=== PATIENT | female | born 1965 | race Hispanic/Latino ===

== ENCOUNTER 2017-07-23 06:28 | Day surgery (SDC) | payer OTHER ==
[2017-07-19 14:50] LABS: Absolute Monocytes 0.5 K/uL (0.1-1.3); Absolute Neutrophil 4.6 K/uL (1.8-8.0); Basophils % 0.5 % (0-1.3); Eosinophils % 4.1 % (0-4.4); Hematocrit 41.5 % (36.0-45.0); Lymphocytes % 26.8 % (15.3-44.8); MCV 89.1 fL (80-100); Monocytes % 6.5 % (3.3-12.3); RBC Red Blood Cell Count 4.66 M/uL (3.86-4.86)
[2017-07-19 15:25] LABS: Potassium 4.3 mEq/L (3.6-5.0)
--- NOTE | 2017-07-19 15:38 | RAD REPORT ---
EXAM DESCRIPTION: RAD - Chest Pa And Lat (2 Views) - 07/19/2017 2:50 pm CLINICAL HISTORY: Preop chest, pending umbilical hernia repair COMPARISON: None. TECHNIQUE: PA and lateral views of the chest were obtained. FINDINGS: The lungs are clear. Heart size is normal and central vasculature is within normal limit s. No pleural effusion or pneumothorax seen. No acute bony finding noted. No aortic abnormality. IMPRESSION: No acute cardiopulmonary process.
--- NOTE | 2017-07-20 06:52 | EKG ---
Test Date: 2017-07-19 Test Time: 14:36:17 Shell Maker Lockstitch: PADMAJA MEASUREMENT RESULTS: Intervals: Rate: 87 MO: 136 QRSD: 78 QT: 368 QTc: 442 [place]: P: 53 MO: 136 QRS: 13 T: 47 INTERPRETIVE STATEMENTS: Normal sinus rhythm Normal ECG No previous ECG available for comparison Electronically Signed On 07-20-17 06:51:42 CDT by Phil Adams
[~2017-07-23 06:28] MED LIST: CEFAZOLIN/SWI 1gm 1 GM/10 ML SYR IVP SCH
--- OUTSIDE RECORDS SUMMARY | 2017-07-23 06:34 | XMS REPORT | Clinical Summary ---
:1965 Author Organization [facility] Address [address] [place] [address] Care Team Providers Name Role Phone Surekha Hampton MD Primary Care Provider Allergies No Known Allergies Current Medications Prescription Sig. Disp. Refills Start Date End Date Status naproxen (NAPROSYN) Take 1 tablet 30 tablet 0 07/18/2016 08/02/2016 500 MG tablet (500 mg total) by mouth 2 (two) times a day with meals for 15 days. cyclobenzaprine Take 1 tablet 20 tablet 0 07/22/2016 08/21/2016 (FLEXERIL) 10 mg (10 mg total) tablet by mouth 2 (two) times a day as needed for muscle spasms for up to 30 days. ibuprofen Take 1 tablet 21 tablet 0 07/22/2016 08/21/2016 (ADVIL,MOTRIN) 800 MG (800 mg total) tablet by mouth 3 (three) times a day for 30 days. acetaminophen-codeine Take 1-2 30 tablet 0 07/22/2016 07/25/2016 (TYLENOL WITH CODEINE tablets by #3) 300-30 mg per mouth every 6 tablet (six) hours as needed for moderate pain for up to 3 days. Active Problems Not on file Encounters Date Type Specialty Care Team Description 07/22/2016 Emergency Emergency Medicine Mary Mullen Neck pain ( Primary Dx) IIIMD after 07/22/2016 Social History Tobacco Use Types Packs/Day Years Used Date Never Smoker Alcohol Use Drinks/Week oz/Week Comments Yes occasionally Sex Assigned at Date Recorded Not on file Last Filed Vital Signs Vital Sign Reading Time Taken Blood Pressure 135/77 07/22/2016 6:05 PM CDT Pulse 72 07/22/2016 6:05 PM CDT Temperature 36.4 C (97.5 F) 07/22/2016 4:44 PM CDT Respiratory Rate 16 07/22/2016 6:05 PM CDT Oxygen Saturation 98% 07/22/2016 6:05 PM CDT Inhaled Oxygen Concentration - - Weight - - Height 154.9 cm (5' 1") 07/22/2016 1:18 PM CDT Body Mass Index - - Plan of Treatment Health Maintenance Due Date Last Done Comments CERVICAL CANCER SCREENING 1986 BREAST CANCER SCREENING 2015 COLON CANCER SCREENING 2015 SHINGRIX VACCINE (#1) 2015 INFLUENZA VACCINE 09/19/2017 Results ECG ED Preliminary Interpretation - NOT AN ORDER (07/22/2016 11:35 PM) Narrative Mary Mullen MD 07/22/2016 11:35 PM ECG ED Preliminary Interpretation - Not an Order Performed by: FRANCE MONTERROSO Authorized by: MARY MULLEN ECG reviewed by ED Physician in the absence of a frame sample and pattern supervisor: yes Rate: ECG rate:71 ECG rate assessment: normal Rhythm: Rhythm: sinus rhythm QRS: QRS axis:Normal CT Cervical Spine Wo Contrast (07/22/2016 5:23 PM) [place] [id number] Narrative EXAMINATION:CT CERVICAL SPINE WO CONTRAST CLINICAL HISTORY:neck pain COMPARISON:None. TECHNIQUE: Noncontrast cervical spinal CT with multiplanar reconstruction performed using radiation dose reduction techniques.Technical factors are evaluated and adjusted to ensure appropriate moderation of exposure.Automated dose management technology is applied to adjust radiation exposure while achieving a diagnostic quality image. FINDINGS: There is straightening of normal cervical lordosis without malalignment. Vertebral body heights are preserved. There is no evidence of acute fracture, suspicious osteolytic or osteoblastic lesion. The C2-3, C5-6, and C6-7 discs are moderately narrowed with adjacent mild endplate osteophytes at C5-6 and C6-7. C2-3: There are mild bilateral neural foraminal stenoses from adjacent facet arthropathy No significant spinal canal stenosis is suspected. C3-4: There is mild right neural foraminal stenosis from adjacent facet arthropathy. No significant spinal canal stenosis is suspected. C4-5: There is mild left neural foraminal stenosis from adjacent facet arthropathy. No significant spinal canal stenosis is suspected. C5-6: There are moderate left more than right neural foraminal stenoses from adjacent uncovertebral and facet arthropathy, encroaching on the exiting C6 nerve roots. Endplate osteophyte results in probable at most mild spinal canal stenosis. C6-7: There are severe left and mild right neural foraminal stenoses from adjacent uncovertebral and facet arthropathy, impinging on the exiting left C7 nerve root. Endplate osteophyte results in probable at most mild spinal canal stenosis. C7-T1: There is no significant neural foraminal stenosis. No significant spinal canal stenosis is suspected. Visualized neck soft tissues including thyroid gland are unremarkable. IMPRESSION: Cervical spondylosis as described, including severe left C6-7 and moderate left more than right C5-6 neural foraminal stenoses. [facility]-[id number] Procedure Note [facility], Radiology Results - 07/22/2016 5:47 PM CDT EXAMINATION: CT CERVICAL SPINE WO CONTRAST CLINICAL HISTORY: neck pain COMPARISON: None. TECHNIQUE: Noncontrast cervical spinal CT with multiplanar reconstruction performed using radiation dose reduction techniques. Technical factors are evaluated and adjusted to ensure appropriate moderation of exposure. Automated dose management technology is applied to adjust radiation exposure while achieving a diagnostic quality image. FINDINGS: There is straightening of normal cervical lordosis without malalignment. Vertebral body heights are preserved. There is no evidence of acute fracture, suspicious osteolytic or osteoblastic lesion. The C2-3, C5-6, and C6-7 discs are moderately narrowed with adjacent mild endplate osteophytes at C5-6 and C6-7. C2-3: There are mild bilateral neural foraminal stenoses from adjacent facet arthropathy No significant spinal canal stenosis is suspected. C3-4: There is mild right neural foraminal stenosis from adjacent facet arthropathy. No significant spinal canal stenosis is suspected. C4-5: There is mild left neural foraminal stenosis from adjacent facet arthropathy. No significant spinal canal stenosis is suspected. C5-6: There are moderate left more than right neural foraminal stenoses from adjacent uncovertebral and facet arthropathy, encroaching on the exiting C6 nerve roots. Endplate osteophyte results in probable at most mild spinal canal stenosis. C6-7: There are severe left and mild right neural foraminal stenoses from adjacent uncovertebral and facet arthropathy, impinging on the exiting left C7 nerve root. Endplate osteophyte results in probable at most mild spinal canal stenosis. C7-T1: There is no significant neural foraminal stenosis. No significant spinal canal stenosis is suspected. Visualized neck soft tissues including thyroid gland are unremarkable. IMPRESSION: Cervical spondylosis as described, including severe left C6-7 and moderate left more than right C5-6 neural foraminal stenoses. [facility]-[id number] ECG 12 lead (07/22/2016 3:59 PM) Component Value Ref Range Ventricular rate 71 Atrial rate 71 [place] interval 138 QRSD interval 70 QT interval 402 QTC interval 436 P axis 1 51 QRS axis 1 15 T wave axis 50 EKG impression Normal sinus rhythm-Normal ECG-In automated comparison with ECG of 17-JUL-2016 20:08,-No significant change was found- Specimen Performing Laboratory [facility] [address] [place] [address] after 07/22/2016 Insurance Payer Benefit Plan / Group Subscriber ID Type Phone Address [employer] PPO OPEN CHOICE xxxxxxxxxx PPO Home: [address] [phone] [place], [place] [phone]
[2017-07-23 07:10] LABS: Specific Gravity 1.025 (1.005-1.030)
[2017-07-23] MEDS ORDERED: Ringers Lactate 1,000 ML IV ONE (07:20)
[2017-07-23] MEDS ORDERED: CEFAZOLIN/SWI 1gm 1 GM/10 ML SYR ONE (07:20)
[2017-07-23] MEDS ORDERED: PROPOFOL 200 MG/20 ML VIAL IV ONE (08:19)
[2017-07-23] MEDS: BUPIVACAINE 0.5% Inj,MDV 50 mL VIAL ONE ×2 (08:19→09:06)
[2017-07-23] MEDS ORDERED: MIDAZOLAM HCL 2 MG/2 ML INJ ONE (08:20)
[2017-07-23] MEDS ORDERED: ONDANSETRON HCL 40 MG/20 ML VIAL ONE (08:20)
[2017-07-23] MEDS ORDERED: FENTANYL CITR 100 MCG/2 ML ONE (08:20)
[2017-07-23] MEDS ORDERED: ROCURONIUM 50 MG/5 ML VIAL IV ONE (08:21)
[2017-07-23] MEDS ORDERED: GLYCOPYRROLATE 0.2 MG/ML SYR ONE (09:55)
[2017-07-23] MEDS ORDERED: NEOSTIGMINE 1 MG/ML -5 ML SYRINGE ONE (09:55)
--- NOTE | 2017-07-23 10:06 | P.BOP ---
Preoperative diagnosis: incisional incarcerated ventral hernia, morbid obesity Postoperative diagnosis: same Primary procedure: Open repair of incisional incarcerated ventral hernia with mesh Project Analyst: Iris Taylor Estimated blood loss: <10cc Specimen: hernia sac Anesthesia: General Complications: None Implants: ventralex medium
[2017-07-23] MEDS ORDERED: HYDROCODONE/APAP 5/325 MG TAB ONE (11:09)
--- NOTE | 2017-07-24 00:33 | OP ---
Date of Procedure: 07/23/2017 Surgeon: Adrian Torres MD Armament Repairer: CHELE Draper. Preoperative Diagnoses: Incisional incarcerated ventral hernia, morbid obesity. Postoperative Diagnoses: Incisional incarcerated ventral hernia, morbid obesity. Procedures: Open repair of an incisional incarcerated ventral hernia with mesh. Specimen: Hernia sac. Anesthesia: General plus local. Implant: Medium Ventralex mesh. Indications: This is the case of a 52-year-old patient with a previous incision, now with a hernia i n the ventral region incisional. The patient has been trying to lose weight over the last several mo nths, but she has not been able to even note she is attempting. She was offered an options of [facility] surgery. She has not done those yet. The hernia is getting bigger and she wants to repair it un derstanding the risk of recurrence. The benefits, alternatives and risks of incisional ventral herni a repair was fully explained to the patient, which include but are not limited to infection, bleeding , damage to adjacent structures, anesthesia complication, recurrence, MS, and even . She also u nderstands this may not relieve any symptoms. She might need more than one surgical intervention. S he understands the importance of losing weight. She also understands that we might have to use mesh in that area and the pros and cons of a mesh was fully explained to the patient in details and she un derstood and signed a consent. Description Of Procedure: The patient was brought to the operating room, placed in supine position. Anesthesia was done without complication. Abdomen was prepped and draped in a sterile fashion. A m idline incision was made. Incision was carried down to fascia. We noticed the hernia defect. There was a 1 pinpoint by the patient in all the room. We opened the hernia sac, noticed to have incarcer ated omentum that was carefully removed back into the abdominal cavity after fully inspected and seen to be viable. The hernia sac was removed. I put my finger underneath the fascia looking for any of the defect and this is the only defect that we can effect that we can palpate at this moment, so the fascia edges were clean, but in order for us to close this, we are going to have to use mesh, so the mesh that we decide in this case to use is the Ventralex mesh placed intraperitoneally coming throug h the incision. This mesh was secured to the fascia in multiple locations with #1 Prolene. The area was irrigated. Then, after that, I proceeded to close the fascia in a [id number]-dw-[id number] fashion using #1 Prolene multiple times. The subcutaneous tissue closed with 3-0 chromic and 0 chromic and the sk in approximated with Steri-Strips on top. Sponge count and instrument counts were correct. The abbe ent tolerated the procedure well. The patient was sent to recovery in stable condition. DISCHARGE SUMMARY Diagnosis: Incisional ventral hernia. Procedures: Open repair of incisional ventral hernia with mesh. Disposition: Home. Activity: As tolerated. No heavy lifting. Followup: Follow up in my office in 1 week. Call for appointment [phone]. Instructions: Keep area dry for 48 hours, then may shower. Keep the Steri-Strips intact. Medications: Include Bactrim DS p.o. b.i.d. and Vicodin q.4 hours p.r.n. pain. The patient also adv ised the importance of abdominal binder and losing weight. RONALDO/LEANDRA Voice ID: [id number] Report ID: [id number]
== END 2017-07-23 12:08 | disposition home or self-care (01) ==
LOC: OR 06:28
PROVIDERS: ATTEND Surgery
PROC: 0WUF0JZ Supplement Abdominal Wall with Synthetic Substitute, Open Approach (ICD-10-PCS; principal; 2017-07-23 08:30)
DX: K43.0 Incisional hernia with obstruction, without gangrene (principal); E66.01 Morbid (severe) obesity due to excess calories
CPT/HCPCS: 36415; 71046; 80048; 81025; 85025; 88302; 93005; J0690; J2250; J2405; J2710; J3010